=== PATIENT | female | born 1975 | race Caucasian/White ===

== ENCOUNTER 2019-11-22 20:57 | Emergency (ER) | payer MEDICAID ==
[~2019-11-22] VITALS: Ht 160 cm; Wt 78.9 kg
[2019-11-22 21:00] VITALS: BP_SYST 122
[2019-11-22 21:15] VITALS: BP_SYST 122
--- NOTE | 2019-11-22 21:15 | NUR ---
Patient to ER bed 4 to gown for evaluation. Side rails up. Report given to AUGUST.
--- NOTE | 2019-11-22 21:20 | NUR ---
PT AAO AND AMBULATORY C/O CHEST WALL DISCOMFORT FOR THE PAST 4 DAYS. PT REPORTS PAIN WITH MOVEMENT AND LOCATION OF PAIN IS STERNAL. PT REPORTS 6/10 PAIN SCALE WITH DIZZINESS.
--- NOTE | 2019-11-22 21:30 | NUR ---
ER at bedside examining patient.
--- NOTE | 2019-11-22 21:44 | NUR ---
Patient came back from X-ray.
[2019-11-22] MEDS ORDERED: IBUPROFEN 400 MG TABLET PO ONE (21:45)
--- NOTE | 2019-11-22 21:46 | NUR ---
Blood for labwork drawn from child custody evaluator. Patient tolerated well.
[2019-11-22 21:57] LABS: BASOPHILS % (AUTO) 0.5 % (0.0-2.0); EOSINOPHILS # (AUTO) 0.2 K/uL (0.0-0.4); EOSINOPHILS % (AUTO) 2.3 % (0.0-4.0); HEMATOCRIT 38.6 % (36-48); HEMOGLOBIN 12.2 g/dL (12.0-16.0); LYMPHOCYTES # (AUTO) 2.8 K/uL (1.0-5.5); LYMPHOCYTES % (AUTO) 32.9 % (20.5-51.5); MEAN CORPUSCULAR HEMOGLOBIN 24 pg (27-31); MEAN CORPUSCULAR HGB CONC 32 % (32-36); MEAN CORPUSCULAR VOLUME 76 fL (79.0-98.0); MONOCYTES # (AUTO) 0.8 K/uL (0.0-1.0); MONOCYTES % (AUTO) 9.5 % (1.7-9.3); NEUTROPHILS # (AUTO) 4.7 K/uL (1.8-7.7); NEUTROPHILS % (AUTO) 54.8 % (40.0-70.0); PLATELET COUNT (AUTO) 287 K/uL (130-430); RED BLOOD CELL COUNT(AUTO) 5.06 MIL/uL (4.2-6.2); RED CELL DISTRIBUTION WIDTH 14.1 % (9.0-15.0); WHITE BLOOD COUNT (AUTO) 8.5 K/uL (4.8-10.8)
[2019-11-22 22:14] LABS: ANION GAP 10 (5-15); CALCIUM 9.8 mg/dL (8.4-11.0); CHLORIDE 105 mmol/L (98-107); CREATININE 0.57 mg/dL (0.55-1.30); GLUCOSE 101 mg/dL (70-99); POTASSIUM 3.8 mmol/L (3.5-5.1); SODIUM SERUM 139 mmol/L (136-145); UREA NITROGEN, BLOOD 16 mg/dL (8-21)
[2019-11-22 22:16] LABS: GFR AFRICAN AMERICAN 150 mL/min (>90)
[2019-11-22 23:18] VITALS: BP_SYST 122
--- NOTE | 2019-11-22 23:18 | NUR ---
Patient given written and verbal discharge instructions and verbalizes understanding. ER MD discussed with patient the results and treatment provided. Patient in stable condition. ID arm band removed. No Rx given. Patient educated on pain management and to follow up with PMD. Pain Scale 2/10. Opportunity for questions provided and answered. Medication side effect fact sheet provided.
== END 2019-11-22 23:18 | disposition home or self-care (01) ==
LOC: SED 20:57
DX: R07.89 Other chest pain (principal)
CPT/HCPCS: 36415; 71046-TC; 80048; 81025; 84484; 85025; 99284